=== PATIENT | female | born 1965 | race Caucasian/White ===

== ENCOUNTER 2019-03-04 16:21 | Emergency (ER) | payer OTHER, SELFPAY ==
[2019-03-04 17:14] LABS: #Eosinphils 0.2 thou/uL (0.0-0.7); #Lymphocytes 1.2 thou/uL (1.20-3.40); #Monocytes 0.5 thou/uL (0.11-0.59); #Neutrophils 3.6 thou/uL (1.40-6.50); %Basophils 0.5 % (0.0-1.0); %Eosinophils 2.9 % (0.0-10.0); %Lymphocytes 22.2 % (21.0-51.0); %Monocytes 9.1 % (0.0-10.0); %Neutrophils 65.3 % (42.0-75.0); Hemoglobin 13.9 g/dL (12.0-16.0); Mean Corpuscular HGB CONC 35.1 g/dL (32.0-36.0); Mean Corpuscular Hemoglobin 32.6 pg (27.0-31.0); Mean Corpuscular Volume 92.8 fL (78.0-98.0); Mean Platelet Volume 6.9 fL (7.4-10.4); Platelet Count 217 thou/uL (130-400); Red Blood Cell (RBC) Count 4.26 mill/uL (4.20-5.40); White Blood Cell (WBC) Count 5.5 thou/uL (4.8-10.8)
--- NOTE | 2019-03-04 17:19 | RAD ---
EXAM: Two views chest PROVIDED CLINICAL HISTORY: Cough. COMPARISON: None FINDINGS: Cardiac silhouette and pulmonary vasculature are within normal limits. There are linear and patchy p arenchymal densities seen within the superior segment of the left upper lobe worrisome for pneumonia. The osseous structures have a normal appearance. IMPRESSION: Left upper lobe pneumonia. Follow-up to resolution is recommended..
[2019-03-04 17:36] LABS: ALT (SGPT) 20 U/L (8-55); AST (SGOT) 18 U/L (5-34); Albumin 4.2 g/dL (3.5-5.0); Alkaline Phosphatase 66 U/L (40-150); Anion Gap 12 mmol/L (10-20); BUN (Urea Nitrogen) 13 mg/dL (9.8-20.1); Bilirubin, Total 1.2 mg/dL (0.2-1.2); Calc. Creatinine Clearance 0 mL/min (70-130); Calcium 9.5 mg/dL (7.8-10.44); Carbon Dioxide 27 mmol/L (22-29); Chloride 102 mmol/L (98-107); Estimated GFR-MDRD 81; Globulin 2.9 g/dL (2.4-3.5); Glucose 98 mg/dL (70-105); Protein, Total 7.1 g/dL (6.0-8.3); Sodium 137 mmol/L (136-145)
[2019-03-04] MEDS ORDERED: Dexamethasone 4 mg/ml Vial ONE (18:56)
== END 2019-03-04 19:25 | disposition home or self-care (01) ==
LOC: ERS 16:21
DX: J18.9 Pneumonia, unspecified organism (principal); F43.10 Post-traumatic stress disorder, unspecified; F32.9 Major depressive disorder, single episode, unspecified; Z87.891 Personal history of nicotine dependence
CPT/HCPCS: 36415; 71046; 80053; 83605; 85025; 87040; J1100

== ENCOUNTER 2020-09-11 06:47 | Outpatient (CLI) | payer OTHER ==
[2020-09-12 06:31] LABS: SARS-CoV-2 MS2 Positive; SARS-CoV-2 N Gene Negative; SARS-CoV-2 S Gene Negative; SARS-CoV-2 by NAA Not Detected (NotDetected); SARS-CoV-2 orf1ab Negative
== END 2020-09-11 06:48 | disposition home or self-care (01) ==
LOC: LABBT 06:47
PROVIDERS: ATTEND Specialist
DX: Z01.812 Encounter for preprocedural laboratory examination (principal); Z20.828 Contact with and (suspected) exposure to other viral communicable diseases
CPT/HCPCS: 87635; U0003

== ENCOUNTER 2020-09-14 10:00 | Day surgery (SDC) | payer OTHER ==
[2020-09-13 10:46] VITALS: BMI 27.9
[2020-09-14] MEDS ORDERED: PROPOFOL 200 MG/20 ML VIAL ONE (10:45)
[2020-09-14] MEDS ORDERED: Lidocaine 1% PF 5 ML VIAL ONE (10:45)
[2020-09-14] MEDS ORDERED: Ondansetron PF 4 MG/2 ML Vial ONE (10:45)
[2020-09-14] MEDS ORDERED: Dexamethasone 20 MG/5 ML VIAL ONE (10:45)
[2020-09-14] MEDS ORDERED: CEFAZOLIN 1 GM VIAL ONE (11:31)
[2020-09-14] MEDS ORDERED: Sodium Chloride 0.9% 0 ML ONE (11:31)
[2020-09-14] MEDS ORDERED: Sodium Chloride 0.9% 100 ML ONE (11:36)
[2020-09-14] MEDS ORDERED: Bupivacaine PF 0.5% 30 ML VIAL ONE (11:57)
[2020-09-14] MEDS ORDERED: EPINEPHrine 1 MG/ML AMP ONE (11:57)
[2020-09-14] MEDS ORDERED: Propofol 500 MG/50 ML VIAL ONE (12:14)
[2020-09-14] MEDS ORDERED: Fentanyl 100 MCG/2 ML VIAL ONE (12:35)
[2020-09-14] MEDS ORDERED: PROPOFOL 20 ML ONE (14:18)
--- NOTE | 2020-09-14 14:26 | RAD ---
THORACIC SPINE: 09/14/20 Three fluoroscopic images from OR are presented. INDICATIONS: Insertion of dorsal column stimulator device. FINDINGS/IMPRESSION: These three images show two dorsal column stimulator leads overlying the mid thoracic spine. The tip is seen at the level of the T7. POS: AGW
--- NOTE | 2020-09-14 15:07 | OP ---
DATE OF PROCEDURE: 09/14/2020 PREOPERATIVE DIAGNOSES: 1. Chronic pain syndrome. 2. Lumbar radiculopathy. POSTOPERATIVE DIAGNOSES: 1. Chronic pain syndrome. 2. Lumbar radiculopathy. PROCEDURES PERFORMED: 1. Spinal cord stimulator generator implant x1. 2. Spinal cord stimulator lead implant x2. SPECIMENS REMOVED: None. ESTIMATED BLOOD LOSS: Minimal. DESCRIPTION OF PROCEDURE: The patient was taken to the procedure room, placed prone on the procedure room table. A time-out was performed. The back was prepped with DuraPrep and sterile drapes were applied. Using fluoroscopy, we located the interspace of T11-T12. We anesthetized the skin and made an incision, which was approximately 3 cm vertical. We blunt dissected this down to fascia and then inserted a 14-gauge Touhy needle from the lead kit in a paramedian fashion to engage in the T11-T12 ligament. We used lost resistance to gain access to the epidural space. Aspiration was negative for blood or CSF. We threaded the 8 contact lead through the needle and up the dorsal midline epidural space to the bottom of T7. We did the exact same technique using a second needle and a second lead on the contralateral side. Both leads were parallel. We tested the leads with the patient awake and the patient noted paresthesia in all pain areas. We then took the needles out without moving the leads. We placed anchors over the leads and then anchored and then fixated these anchors to fascia using 2-0 silk suture x2 on each lead. We then turned our attention to the right lower back. The patient wears her belts and pants low. Therefore, we chose a site above the belt line. We anesthetized the skin horizontally and made a 3.5 cm incision, bluntly dissected this down to Asad's fascia and then created a pocket by blunt dissecting superiorly and inferiorly. We then used a tunneling device to make a tunnel between the two incisions. We threaded the leads through the tunneling device. We created a tension relief loop at the anchor site. We connected the leads to the battery. Then, all impedances were checked and they were good. We inserted the battery into the pocket after we torqued down the leads to fixate into the battery. Impedances were again checked, which were all good. We then approximated the fascial layers using 2-0 Vicryl suture in simple interrupted and horizontal mattress stitches. We then used a 3-0 Rapide to approximate the skin layer using a subcuticular stitch. A layer of Dermabond was placed over both incisions and allowed to dry and a sterile 4 x 4 with Medipore tape was placed over this. The patient was taken to Day Stay under stable condition. Job ID: [id number]
== END 2020-09-14 15:35 | disposition home or self-care (01) ==
LOC: SDC 10:00
PROVIDERS: ATTEND Specialist
PROC: 01HY0MZ Insertion of Neurostimulator Lead into Peripheral Nerve, Open Approach (ICD-10-PCS; principal; 2020-09-14)
PROC: 0JH70BZ Insertion of Single Array Stimulator Generator into Back Subcutaneous Tissue and Fascia, Open Approach (ICD-10-PCS; principal; 2020-09-14)
DX: G89.4 Chronic pain syndrome (principal); M47.27 Other spondylosis with radiculopathy, lumbosacral region; M51.17 Intervertebral disc disorders with radiculopathy, lumbosacral region; Z79.899 Other long term (current) drug therapy; Z88.8 Allergy status to other drugs, medicaments and biological substances
CPT/HCPCS: 72070; 76000; C1778; C1787; J0171; J0690; J1100; J2405; J2704; J3010; J3490; L8679; L8689; S0020

== ENCOUNTER 2021-10-31 13:25 | Outpatient (CLI) | payer OTHER | END 2021-10-31 13:26 | disposition home or self-care (01) | LOC: BICMAMMO 13:25 | PROVIDERS: ATTEND Internal Medicine | DX: Z13.820 Encounter for screening for osteoporosis (principal) | CPT/HCPCS: 77080 ==